=== PATIENT | male | born 1995 | race African-American/Black ===

== ENCOUNTER 2017-04-09 10:47 | Inpatient (IN) | payer OTHER ==
[2017-04-09 12:39] VITALS: BMI 30.5
--- NOTE | 2017-04-09 15:23 | HP ---
CIWA Score - CIWA Score Nausea/Vomitin (Nausea, vomiting & diarrhea) Muscle Tremors: 4-Moderate,w/Arms Extend Anxiety: 4-Mod. Anxious/Guarded Agitation: 4-Moderately Restless Paroxysmal Sweats: No Perspiration Orientation: 1-Uncertain about Date Tacttile Disturbances: 0-None Auditory Disturbances: 0-None Visual Disturbances: 1-Very Mild Sensitivity Headache: 4-Moderately Severe CIWA-Ar Total Score: 23 Admission [facility] - HPI Chief Complaint: Patient states "I am here to get help'' from alcohol and drugs addiction. Allergies/Adverse Reactions: Allergies Allergy/AdvReac Type Severity Reaction Status Date / Time Penicillins Allergy Verified 07/03/14 21:58 History of Present Illness: 21 y/o AA/male with h/o alcohol , opiods and cocaine dependence seeking detox tx. Patient was previously in treatment at [facility]. Exam Limitations: No Limitations - Ebola screening Have you traveled outside of the country in the last 21 days: No Have you had contact with anyone from an Ebola affected area: No Have you been sick,other than usual withdrawal symptoms: No Do you have a fever: No - Review of Systems Constitutional: Night Sweats, Changes in sleep EENT: reports: Dental Problems (cavities in the past and treated.) Respiratory: reports: No Symptoms reported Cardiac: reports: Lightheadedness, Syncope (when drunk) GI: reports: Diarrhea, Nausea, Vomiting : reports: No Symptoms Reported Musculoskeletal: reports: No Symptoms Reported Integumentary: reports: Sweating Neuro: reports: Headache, Tremors, Dizziness Endocrine: reports: Increased Thirst Hematology: reports: No Symptoms Reported Psychiatric: reports: Orientated x3, Anxious, Depressed Patient History - Patient Medical History Hx Anemia: No Hx Asthma: Yes (hx as a child. Last use of albuterol 7 yrs ago per patient.) Hx Chronic Obstructive Pulmonary Disease (COPD): No Hx Cardiac Disorders: No Hx Hypertension: No Hx Hypercholesterolemia: No HX Cerebrovascular Accident: No Hx Seizures: No Hx Diabetes: No Hx Gastrointestinal Disorders: No Hx Liver Disease: No Hx Genitourinary Disorders: No Hx Sexually Transmitted Disorders: No Hx Renal Disease (ESRD): No Hx Thyroid Disease: No Hx Human Immunodeficiency Virus (HIV): No (Negative hx) Hx Hepatitis C: No Hx Depression: Yes (Not on medication) Hx Suicide Attempt: Yes (Self cutting 12/2016;denies current S/H/I) Hx Bipolar Disorder: No Hx Schizophrenia: No - Patient Surgical History Past Surgical History: Yes Hx Neurologic Surgery: No Hx Cataract Extraction: No Hx Cardiac Surgery: No Hx Lung Surgery: No Hx Breast Surgery: No Hx Breast Biopsy: No Hx Abdominal Surgery: No Hx Appendectomy: Yes (2009) Hx Cholecystectomy: No Hx Genitourinary Surgery: No Hx Orthopedic Surgery: No Anesthesia Reaction: No - PPD History Previous Implant?: Yes (negative) Implanted On Prior [facility] Admission?: No PPD to be Administered?: Yes - Reproductive History Patient is a Female of Child Bearing Age (11 -55 yrs old): No (male) Patient : (n/a) - Smoking Cessation Smoking history: Current every day smoker Have you smoked in the past 12 months: Yes Aproximately how many cigarettes per day: 12 Hx Chewing Tobacco Use: No Initiated information on smoking cessation: Yes 'Breaking Loose' booklet given: 04/09/17 - Substance & Tx. History Hx Alcohol Use: Yes (beer/vodka) Hx Substance Use: Yes (percocet, cocaine, marjuana) Substance Use Type: Alcohol, Cocaine, Marijuana, Opiates Hx Substance Use Treatment: Yes (last treatment at [facility]) - Substances Abused Alcohol Route: Oral Frequency: Daily Amount used: a bottle of vodka and 6 pack of beer Age of first use: 12 Date of Last Use: 04/09/17 Cocaine Route: Inhalation Frequency: 3-6 times per week Amount used: $50 Age of first use: 21 Date of Last Use: 04/09/17 Family Disease History - Family Disease History Family Disease History: Diabetes: Grandparent (GM-), Mother Admission Physical Exam S - Vital Signs Vital Signs: Vital Signs - 24 hr 04/09/17 12:36 Temperature 98.1 F Pulse Rate 107 H Respiratory 20 Rate Blood Pressure 132/71 - Physical General Appearance: Yes: Appropriately Dressed, Alcohol on Breath HEENTM: Yes: Within Normal Limits, Hearing grossly Normal, Normocephalic, KYRA, Pharynx Normal Respiratory: Yes: Chest Non-Tender, Lungs Clear, Normal Breath Sounds, No Respiratory Distress Neck: Yes: No masses,lesions,Nodules, Supple, Trachea in good position Breast: Yes: Breast Exam Deferred Cardiology: Yes: Regular Rhythm, Regular Rate, S1, S2 Abdominal: Yes: Normal Bowel Sounds, Non Tender, Flat, Soft Genitourinary: Yes: Other (N/C) Back: Yes: Within Normal Limits, Normal Inspection Musculoskeletal: Yes: full range of Motion, Gait Steady Extremities: Yes: Normal Range of Motion, Non-Tender, Tremors Neurological: Yes: building engineer II-XII NML intact, Fully Oriented, Alert, Motor Strength 5/5 Integumentary: Yes: Dry, Warm, Other (Healed scars on left arm from self cutting. Tatoos; both forearms and right upper arm) Lymphatic: Yes: Within Normal Limits - Diagnostic (1) Alcohol dependence with uncomplicated withdrawal Current Visit: Yes Status: Acute (2) Cocaine dependence, uncomplicated Current Visit: Yes Status: Acute (3) Asthma Current Visit: Yes Status: Chronic Qualifiers: Asthma severity: mild intermittent Asthma complication type: uncomplicated Qualified Code(s): J45.20 - Mild intermittent asthma, uncomplicated Cleared for Admission [facility] - Detox or Rehab [facility] Level of Care: Medically Managed Detox Regimen/Protocol: Librium S Breath Alcohol Content Breath Alcohol Content: 0 Urine Drug Screen - Results Drug Screen Negative: No Urine Drug Screen Results: DEEPAK-Cocaine
[2017-04-09] MEDS ORDERED: hydrOXYzine PAMOATE 50 MG CAPSULE (FP) PO PRN (17:25)
[2017-04-09] MEDS ORDERED: MENTHOL/PHENOL 1 EACH UD MM PRN (17:25)
[2017-04-09] MEDS ORDERED: MAGNESIUM HYDROX 2400MG/30ML ORAL SUSPENSION 30 ML CUP PO PRN (17:25)
[2017-04-09] MEDS ORDERED: LOPERAMIDE HCL 2 MG CAPSULE PO PRN (17:25)
[2017-04-09] MEDS ORDERED: IBUPROFEN 400 MG TABLET (FP) PO PRN (17:25)
[2017-04-09] MEDS ORDERED: P-EPHED 60MG/TRIPROLIDI 2.5MG TABLET PO PRN (17:25)
[2017-04-09] MEDS ORDERED: ACETAMINOPHEN 325 MG TABLET (FP) PO PRN (17:25)
[2017-04-09] MEDS ORDERED: MAG HYDROX/AL HYDROX/SIMETH 30 ML UNIT-DOSE CUP PO PRN (17:25)
[2017-04-09] MEDS ORDERED: guaiFENesin/D-METHORPHAN HB 10 ML UNIT-DOSE CUPS PO PRN (17:25)
[2017-04-09] MEDS ORDERED: NICOTINE POLACRILEX 2 MG GUM BC PRN (17:25)
[2017-04-09] MEDS ORDERED: chlordiazePOXIDE HCL 25 MG CAPSULE PO PRN (17:25)
[2017-04-09] MEDS ORDERED: MAGNESIUM CITRATE 300 ML BOTTLE PO PRN (17:25)
[2017-04-09] MEDS: NICOTINE 21 MG/24 HOURS TOPICAL PATCH TD SCH (17:53)
[2017-04-09] MEDS ORDERED: chlordiazePOXIDE HCL 25 MG CAPSULE PO ONE (18:00)
[2017-04-09 21:25] LABS: URINE APPEARANCE CLEAR; URINE BILIRUBIN NEGATIVE (NEGATIVE); URINE BLOOD NEGATIVE (NEGATIVE); URINE COLOR LTYELLOW; URINE GLUCOSE (UA) NEGATIVE (NEGATIVE); URINE KETONE NEGATIVE (NEGATIVE); URINE LEUK ESTERASE NEGATIVE (NEGATIVE); URINE NITRITE NEGATIVE (NEGATIVE); URINE PROTEIN NEGATIVE (NEGATIVE); URINE UROBILINOGEN NEGATIVE mg/dL (0.2-1.0)
[2017-04-09] MEDS: diphenhydrAMINE HCL 50 MG CAPSULE PO PRN (22:15)
[2017-04-09] MEDS: chlordiazePOXIDE HCL 25 MG CAPSULE PO SCH (22:15)
[2017-04-09] MEDS: THIAMINE HCL 100 MG TABLET (FP) PO SCH (22:15)
[2017-04-10] MEDS: chlordiazePOXIDE HCL 25 MG CAPSULE PO SCH ×4 (07:02→22:01)
[2017-04-10 10:22] LABS: MCH 28.8 pg (25.7-33.7); MCHC 32.3 g/dl (32.0-35.9); MEAN CELL VOLUME 89.2 fl (80-96); MEAN PLT VOLUME 7.7 fl (7.5-11.1); PLATELET COUNT 253 K/MM3 (134-434); WHITE BLOOD COUNT 6.6 K/mm3 (4.0-10.0)
[2017-04-10] MEDS: PRENATAL VITAMINS W/ FOLIC ACID TABLET (FP) PO SCH (10:42)
[2017-04-10 10:47] LABS: ALBUMIN 3.3 g/dl (3.4-5.0); ALK PHOS 52 U/L (45-117); ANION GAP 6 (8-16); BILIRUBIN,TOTAL 0.3 mg/dL (0.2-1.0); CALCIUM 8.8 mg/dL (8.5-10.1); CO2 27 mmol/L (21-32); CREATININE 1.1 mg/dL (0.7-1.3); GLUCOSE,RANDOM 103 mg/dL (74-106); SGOT/AST 28 U/L (15-37); SGPT/ALT 54 U/L (12-78); TOT PROT 6.3 g/dl (6.4-8.2)
[2017-04-10] MEDS: NICOTINE 21 MG/24 HOURS TOPICAL PATCH TD SCH (11:12)
[2017-04-10] MEDS ORDERED: FLU VACCINE QUAD 60 MCG/0.5 ML (MDV 17-18) IM ONE (12:00)
--- NOTE | 2017-04-10 13:59 | CONSULT ---
[facility] Psychiatric Consult - Data Date of interview: 04/10/17 Admission source: [facility] Identifying data: This is 21 years old male with no psychiatric hospitalization history intoxicated with: Alcohol and Cocaine Substance Abuse History: - Smoking Cessation. Smoking history: Current every day smoker. Have you smoked in the past 12 months: Yes. Aproximately how many cigarettes per day: 12. Hx Chewing Tobacco Use: No. Initiated information on smoking cessation: Yes. 'Breaking Loose' booklet given: 04/09/17. - Substance & Tx. History. Hx Alcohol Use: Yes (beer/vodka). Hx Substance Use: Yes ( percocet, cocaine, marjuana). Substance Use Type: Alcohol, Cocaine, Marijuana, Opiates. Hx Substance Use Treatment: Yes (last treatment at [facility]). - Substances Abused. Alcohol. Route: Oral. Frequency: Daily. Amount used: a bottle of vodka and 6 pack of beer. Age of first use: 12. Date of Last Use: 04/09/17. Cocaine. Route: Inhalation. Frequency: 3-6 times per week. Amount used: $50. Age of first use: 21. Date of Last Use: 04/09/17 Medical History: Asthma, Cellulitis history, Psychiatric History: Denies Physical/Sexual Abuse/Trauma History: Denies Additional Comment: Observation. Detox Unit Care Protocol Psychiatric Findings - Problem List ([place] 1, 2,3) (1) Alcohol dependence with uncomplicated withdrawal Current Visit: Yes Status: Acute (2) Cocaine dependence, uncomplicated Current Visit: Yes Status: Acute (3) Drug-induced mood disorder Current Visit: Yes Status: Suspected - Initial Treatment Plan Initial Treatment Plan: Observation. Detox Unit Care Protocol
--- NOTE | 2017-04-10 16:01 | EKG ---
Test Reason : Blood Pressure : / mmHG Vent. Rate : 083 BPM Atrial Rate : 083 BPM P-R Int : 162 ms QRS Dur : 086 ms QT Int : 352 ms P-R-T Axes : 065 066 042 degrees QTc Int : 413 ms NORMAL SINUS RHYTHM NORMAL ECG NO PREVIOUS ECGS AVAILABLE Confirmed by VICKI MIGUEL, VETO ([id number]) on 04/10/2017 4:01:35 PM Referred By: Rhett Thompson Confirmed By:VETO COHEN MD
--- NOTE | 2017-04-10 16:02 | PN ---
[facility] CIWA - CIWA Score Nausea/Vomitin-No Nausea/No Vomiting Muscle Tremors: 3 Anxiety: 4-Mod. Anxious/Guarded Agitation: 3 Paroxysmal Sweats: 3 Orientation: 0-Oriented Tacttile Disturbances: 0-None Auditory Disturbances: 0-None Visual Disturbances: 0-None Headache: 0-None Present CIWA-Ar Total Score: 13 S Progress Note (SOAP) Subjective: Sweating,interrupted sleep,restless,tremors,anxiety Objective: 04/10/17 16:01 Vital Signs - 8 hr 04/10/17 04/10/17 09:48 13:13 Temperature 96.5 F L 98.6 F Pulse Rate 96 H 77 Respiratory 18 18 Rate Blood Pressure 121/76 118/72 Laboratory Last Values WBC 6.6 K/mm3 (4.0-10.0) 04/10/17 07:30 RBC 4.83 M/mm3 (4.00-5.60) 04/10/17 07:30 Hgb 13.9 GM/dL (11.7-16.9) 04/10/17 07:30 Hct 43.1 % (35.4-49) 04/10/17 07:30 MCV 89.2 fl (80-96) 04/10/17 07:30 MCH 28.8 pg (25.7-33.7) 04/10/17 07:30 MCHC 32.3 g/dl (32.0-35.9) 04/10/17 07:30 RDW 14.0 % (11.9-15.9) 04/10/17 07:30 Plt Count 253 K/MM3 (134-434) 04/10/17 07:30 MPV 7.7 fl (7.5-11.1) 04/10/17 07:30 Sodium 139 mmol/L (136-145) 04/10/17 07:30 Potassium 4.2 mmol/L (3.5-5.1) 04/10/17 07:30 Chloride 106 mmol/L (98-107) 04/10/17 07:30 Carbon Dioxide 27 mmol/L (21-32) 04/10/17 07:30 Anion Gap 6 (8-16) L 04/10/17 07:30 BUN 10 mg/dL (7-18) 04/10/17 07:30 Creatinine 1.1 mg/dL (0.7-1.3) 04/10/17 07:30 Creat Clearance w eGFR > 60 (>60) 04/10/17 07:30 Random Glucose 103 mg/dL (74-106) 04/10/17 07:30 Calcium 8.8 mg/dL (8.5-10.1) 04/10/17 07:30 Total Bilirubin 0.3 mg/dL (0.2-1.0) 04/10/17 07:30 AST 28 U/L (15-37) 04/10/17 07:30 ALT 54 U/L (12-78) 04/10/17 07:30 Alkaline Phosphatase 52 U/L (45-117) 04/10/17 07:30 Total Protein 6.3 g/dl (6.4-8.2) L 04/10/17 07:30 Albumin 3.3 g/dl (3.4-5.0) L 04/10/17 07:30 Urine Color Ltyellow 04/09/17 20:50 Urine Appearance Clear 04/09/17 20:50 Urine pH 7.0 (5.0-8.0) 04/09/17 20:50 Ur Specific [place] 1.020 (1.005-1.025) 04/09/17 20:50 Urine Protein Negative (NEGATIVE) 04/09/17 20:50 Urine Glucose (UA) Negative (NEGATIVE) 04/09/17 20:50 Urine Ketones Negative (NEGATIVE) 04/09/17 20:50 Urine Blood Negative (NEGATIVE) 04/09/17 20:50 Urine Nitrite Negative (NEGATIVE) 04/09/17 20:50 Urine Bilirubin Negative (NEGATIVE) 04/09/17 20:50 Urine Urobilinogen Negative mg/dL (0.2-1.0) 04/09/17 20:50 RPR Titer Nonreactive (NONREACTIVE) 04/10/17 07:30 labs noted Assessment: 04/10/17 16:01 Withdrawal sx. Plan: Continue detox
[2017-04-10] MEDS: THIAMINE HCL 100 MG TABLET (FP) PO SCH (22:01)
[2017-04-10] MEDS: diphenhydrAMINE HCL 50 MG CAPSULE PO PRN (22:01)
[2017-04-11] MEDS: chlordiazePOXIDE HCL 25 MG CAPSULE PO SCH ×3 (04:01→16:58)
[2017-04-11] MEDS: PRENATAL VITAMINS W/ FOLIC ACID TABLET (FP) PO SCH (10:46)
[2017-04-11] MEDS: NICOTINE 21 MG/24 HOURS TOPICAL PATCH TD SCH (10:46)
--- NOTE | 2017-04-11 12:36 | PN ---
[facility] CIWA - CIWA Score Nausea/Vomitin-No Nausea/No Vomiting Muscle Tremors: 4-Moderate,w/Arms Extend Anxiety: 4-Mod. Anxious/Guarded Agitation: 4-Moderately Restless Paroxysmal Sweats: 1-Minimal Palms Moist Orientation: 0-Oriented Tacttile Disturbances: 3-Moderate Itch/Numb/Burn Auditory Disturbances: 0-None Visual Disturbances: 0-None Headache: 0-None Present CIWA-Ar Total Score: 16 [facility] Progress Note (SOAP) Subjective: ANXIETY,SWEATS,TREMORS,FATIGUE. Objective: 04/11/17 12:46 Vital Signs Temperature 97.0 F L 04/11/17 10:32 Pulse Rate 96 H 04/11/17 10:32 Respiratory Rate 20 04/11/17 10:32 Blood Pressure 128/80 04/11/17 10:32 O2 Sat by Pulse Oximetry (%) Laboratory Last Values WBC 6.6 K/mm3 (4.0-10.0) 04/10/17 07:30 RBC 4.83 M/mm3 (4.00-5.60) 04/10/17 07:30 Hgb 13.9 GM/dL (11.7-16.9) 04/10/17 07:30 Hct 43.1 % (35.4-49) 04/10/17 07:30 MCV 89.2 fl (80-96) 04/10/17 07:30 MCH 28.8 pg (25.7-33.7) 04/10/17 07:30 MCHC 32.3 g/dl (32.0-35.9) 04/10/17 07:30 RDW 14.0 % (11.9-15.9) 04/10/17 07:30 Plt Count 253 K/MM3 (134-434) 04/10/17 07:30 MPV 7.7 fl (7.5-11.1) 04/10/17 07:30 Sodium 139 mmol/L (136-145) 04/10/17 07:30 Potassium 4.2 mmol/L (3.5-5.1) 04/10/17 07:30 Chloride 106 mmol/L (98-107) 04/10/17 07:30 Carbon Dioxide 27 mmol/L (21-32) 04/10/17 07:30 Anion Gap 6 (8-16) L 04/10/17 07:30 BUN 10 mg/dL (7-18) 04/10/17 07:30 Creatinine 1.1 mg/dL (0.7-1.3) 04/10/17 07:30 Creat Clearance w eGFR > 60 (>60) 04/10/17 07:30 Random Glucose 103 mg/dL (74-106) 04/10/17 07:30 Calcium 8.8 mg/dL (8.5-10.1) 04/10/17 07:30 Total Bilirubin 0.3 mg/dL (0.2-1.0) 04/10/17 07:30 AST 28 U/L (15-37) 04/10/17 07:30 ALT 54 U/L (12-78) 04/10/17 07:30 Alkaline Phosphatase 52 U/L (45-117) 04/10/17 07:30 Total Protein 6.3 g/dl (6.4-8.2) L 04/10/17 07:30 Albumin 3.3 g/dl (3.4-5.0) L 04/10/17 07:30 Urine Color Ltyellow 04/09/17 20:50 Urine Appearance Clear 04/09/17 20:50 Urine pH 7.0 (5.0-8.0) 04/09/17 20:50 Ur Specific [place] 1.020 (1.005-1.025) 04/09/17 20:50 Urine Protein Negative (NEGATIVE) 04/09/17 20:50 Urine Glucose (UA) Negative (NEGATIVE) 04/09/17 20:50 Urine Ketones Negative (NEGATIVE) 04/09/17 20:50 Urine Blood Negative (NEGATIVE) 04/09/17 20:50 Urine Nitrite Negative (NEGATIVE) 04/09/17 20:50 Urine Bilirubin Negative (NEGATIVE) 04/09/17 20:50 Urine Urobilinogen Negative mg/dL (0.2-1.0) 04/09/17 20:50 RPR Titer Nonreactive (NONREACTIVE) 04/10/17 07:30 Assessment: 04/11/17 12:46 WITHDRAWAL SX Plan: CONTINUE DETOX
--- NOTE | 2017-04-11 12:45 | PN ---
[facility] Progress Note (SOAP) Subjective: ANXIETY,TREMORS,FATIGUE. Objective: 04/11/17 12:45 Vital Signs Temperature 97.0 F L 04/11/17 10:32 Pulse Rate 96 H 04/11/17 10:32 Respiratory Rate 20 04/11/17 10:32 Blood Pressure 128/80 04/11/17 10:32 O2 Sat by Pulse Oximetry (%) Laboratory Last Values WBC 6.6 K/mm3 (4.0-10.0) 04/10/17 07:30 RBC 4.83 M/mm3 (4.00-5.60) 04/10/17 07:30 Hgb 13.9 GM/dL (11.7-16.9) 04/10/17 07:30 Hct 43.1 % (35.4-49) 04/10/17 07:30 MCV 89.2 fl (80-96) 04/10/17 07:30 MCH 28.8 pg (25.7-33.7) 04/10/17 07:30 MCHC 32.3 g/dl (32.0-35.9) 04/10/17 07:30 RDW 14.0 % (11.9-15.9) 04/10/17 07:30 Plt Count 253 K/MM3 (134-434) 04/10/17 07:30 MPV 7.7 fl (7.5-11.1) 04/10/17 07:30 Sodium 139 mmol/L (136-145) 04/10/17 07:30 Potassium 4.2 mmol/L (3.5-5.1) 04/10/17 07:30 Chloride 106 mmol/L (98-107) 04/10/17 07:30 Carbon Dioxide 27 mmol/L (21-32) 04/10/17 07:30 Anion Gap 6 (8-16) L 04/10/17 07:30 BUN 10 mg/dL (7-18) 04/10/17 07:30 Creatinine 1.1 mg/dL (0.7-1.3) 04/10/17 07:30 Creat Clearance w eGFR > 60 (>60) 04/10/17 07:30 Random Glucose 103 mg/dL (74-106) 04/10/17 07:30 Calcium 8.8 mg/dL (8.5-10.1) 04/10/17 07:30 Total Bilirubin 0.3 mg/dL (0.2-1.0) 04/10/17 07:30 AST 28 U/L (15-37) 04/10/17 07:30 ALT 54 U/L (12-78) 04/10/17 07:30 Alkaline Phosphatase 52 U/L (45-117) 04/10/17 07:30 Total Protein 6.3 g/dl (6.4-8.2) L 04/10/17 07:30 Albumin 3.3 g/dl (3.4-5.0) L 04/10/17 07:30 Urine Color Ltyellow 04/09/17 20:50 Urine Appearance Clear 04/09/17 20:50 Urine pH 7.0 (5.0-8.0) 04/09/17 20:50 Ur Specific [place] 1.020 (1.005-1.025) 04/09/17 20:50 Urine Protein Negative (NEGATIVE) 04/09/17 20:50 Urine Glucose (UA) Negative (NEGATIVE) 04/09/17 20:50 Urine Ketones Negative (NEGATIVE) 04/09/17 20:50 Urine Blood Negative (NEGATIVE) 04/09/17 20:50 Urine Nitrite Negative (NEGATIVE) 04/09/17 20:50 Urine Bilirubin Negative (NEGATIVE) 04/09/17 20:50 Urine Urobilinogen Negative mg/dL (0.2-1.0) 04/09/17 20:50 RPR Titer Nonreactive (NONREACTIVE) 04/10/17 07:30 Assessment: 04/11/17 12:45 WITHDRAWAL SX Plan: CONTINUE DETOX
[2017-04-11] MEDS: THIAMINE HCL 100 MG TABLET (FP) PO SCH (22:16)
[2017-04-11] MEDS: chlordiazePOXIDE 5 MG CAPSULE PO SCH (22:16)
[2017-04-11] MEDS: diphenhydrAMINE HCL 50 MG CAPSULE PO PRN (22:17)
[2017-04-12] MEDS: chlordiazePOXIDE 5 MG CAPSULE PO SCH (06:11)
[2017-04-12 06:44] VITALS: BP 116/64; PULSE 75; TEMP 96.7
--- NOTE | 2017-04-12 17:48 | DS ---
[facility] Detox Discharge Summary Admission Date: 04/09/17 Discharge Date: 04/12/17 - History Present History: Alcohol Dependence, Cocaine Dependence Additional Comments: PATIENT DENYING ANY CURRENT DETOX SYMPTOMS AND REPORTING THAT HE FEELS WELL OVERALL. PATIENT GOING HOME AND TO [facility] ( [facility] FOR AFTERCARE. PATIENT WAS DISCHARGED FROM DETOX UNIT IN STABLE MEDICAL CONDITION. Pertinent Past History: History of Asthma, Depression. - Physical Exam Results Vital Signs: Vital Signs Temperature 96.7 F L 04/12/17 06:43 Pulse Rate 75 04/12/17 06:43 Respiratory Rate 18 04/12/17 06:43 Blood Pressure 116/64 04/12/17 06:43 O2 Sat by Pulse Oximetry (%) Pertinent Admission Physical Exam Findings: WITHDRAWAL SYMPTOMS. Laboratory Tests 04/09/17 04/10/17 04/10/17 20:50 07:30 07:30 WBC 6.6 RBC 4.83 Hgb 13.9 Hct 43.1 MCV 89.2 MCH 28.8 MCHC 32.3 RDW 14.0 Plt Count 253 MPV 7.7 Sodium 139 Potassium 4.2 Chloride 106 Carbon Dioxide 27 Anion Gap 6 L BUN 10 Creatinine 1.1 Creat Clearance w eGFR > 60 Random Glucose 103 Calcium 8.8 Total Bilirubin 0.3 AST 28 ALT 54 Alkaline Phosphatase 52 Total Protein 6.3 L Albumin 3.3 L Urine Color Ltyellow Urine Appearance Clear Urine pH 7.0 Ur Specific [place] 1.020 Urine Protein Negative Urine Glucose (UA) Negative Urine Ketones Negative Urine Blood Negative Urine Nitrite Negative Urine Bilirubin Negative Urine Urobilinogen Negative RPR Titer 04/10/17 07:30 WBC RBC Hgb Hct MCV MCH MCHC RDW Plt Count MPV Sodium Potassium Chloride Carbon Dioxide Anion Gap BUN Creatinine Creat Clearance w eGFR Random Glucose Calcium Total Bilirubin AST ALT Alkaline Phosphatase Total Protein Albumin Urine Color Urine Appearance Urine pH Ur Specific [place] Urine Protein Urine Glucose (UA) Urine Ketones Urine Blood Urine Nitrite Urine Bilirubin Urine Urobilinogen RPR Titer Nonreactive LABS NOTED. - Treatment Hospital Course: Detox Protocol Followed, Detoxed Safely, Responded well, Discharged Condition Good Patient has Accepted a Rehab Referral to: NO .PT. GOING TO [facility] - Medication Discharge Medications: Ambulatory Orders NK [No Known Home Medication] 04/09/17 - Diagnosis (1) Alcohol dependence with uncomplicated withdrawal Status: Acute (2) Cocaine dependence, uncomplicated Status: Acute (3) Asthma Status: Chronic Qualifiers: Asthma severity: mild intermittent Asthma complication type: uncomplicated Qualified Code(s): J45.20 - Mild intermittent asthma, uncomplicated (4) Drug-induced mood disorder Status: Suspected - AMA Did Patient Leave Against Medical Advice: No
[2017-04-12] MEDS ORDERED: chlordiazePOXIDE HCL 10 MG CAPSULE PO SCH (23:00)
== END 2017-04-12 09:25 | disposition home or self-care (01) | DRG 774 ==
LOC: YASAS 10:47 → Y3N 17:13
PROVIDERS: ADMIT Internal Medicine; ATTEND Internal Medicine
PROC: HZ2ZZZZ Detoxification Services for Substance Abuse Treatment (ICD-10-PCS; principal; 2017-04-09)
DX: F10.230 Alcohol dependence with withdrawal, uncomplicated (principal); F14.20 Cocaine dependence, uncomplicated; F19.24 Other psychoactive substance dependence with psychoactive substance-induced mood disorder; F32.9 Major depressive disorder, single episode, unspecified; J45.20 Mild intermittent asthma, uncomplicated; F17.210 Nicotine dependence, cigarettes, uncomplicated; Z91.5 Personal history of self-harm
CPT/HCPCS: 36415; 80053; 81003; 85027; 86593; 93005; 93010

== ENCOUNTER 2021-11-19 09:25 | Emergency (ER) | payer OTHER ==
[2021-11-19] MEDS ORDERED: SODIUM CHLORIDE 0.9% 500 ML INFUS.BAG IV ONE (09:55)
[2021-11-19] MEDS ORDERED: ACETAMINOPHEN 1000 MG/100 ML BAG IVPB ONE (09:55)
[2021-11-19 10:45] VITALS: BMI 36.6
[2021-11-19] MEDS ORDERED: ACETAMINOPHEN INJECTION 100 ML IVPB ONE (11:05)
[2021-11-19 11:06] LABS: INR 1.76 (0.83-1.09); PROTHROMBIN TIME (PATIENT) 20.3 SEC (9.7-13.0)
[2021-11-19 11:07] LABS: HEMATOCRIT 27.9 % (35.4-49); HEMOGLOBIN 9.1 G/dL (11.7-16.9); MCH 25.8 pg (25.7-33.7); MCHC 32.4 g/dl (32.0-35.9); MEAN CELL VOLUME 79.4 fl (80-96); MEAN PLT VOLUME 7.2 fl (7.5-11.1); PLATELET COUNT 915.6 10^3/uL (134-434); RBC 3.51 10^6/uL (4.00-5.60); RDW 18.2 % (11.9-15.9); WHITE BLOOD COUNT 21.4 10^3/uL (4.0-10.8)
[2021-11-19 11:09] LABS: ACTIVATED PTT 31.8 SECONDS (25.2-36.5)
[2021-11-19 11:13] LABS: ALBUMIN 2.3 g/dl (3.4-5.0); BILIRUBIN,TOTAL 0.7 mg/dl (0.2-1); CALCIUM 8.7 mg/dl (8.5-10); CREATININE 1.3 mg/dl (0.55-1.3); TOT PROT 7.2 g/dl (6.4-8.2)
[2021-11-19] MEDS ORDERED: IMIPENEM/CILASTATIN SODIUM 1,000 MG in SODIUM CHLORIDE 100 ML IVPB ONE (11:44)
[2021-11-19 14:15] LABS: LACTIC ACID 3.3 mmol/L (0.4-2.0)
[2021-11-19 14:36] LABS: URINE APPEARANCE CLEAR; URINE BILIRUBIN NEGATIVE (NEGATIVE); URINE COLOR YELLOW; URINE GLUCOSE (UA) NEGATIVE (NEGATIVE); URINE KETONE NEGATIVE (NEGATIVE)
[2021-11-19 14:37] LABS: URINE LEUK ESTERASE NEGATIVE (NEGATIVE); URINE NITRITE NEGATIVE (NEGATIVE); URINE PROTEIN 1+ (NEGATIVE); URINE RBC 0-2 /hpf (0-4); URINE UROBILINOGEN 0.2 (0.2-1.0); URINE WBC 0-2 (NEGATIVE)
[2021-11-19] MEDS ORDERED: morphine CARPU-JECT 2 MG/1 ML DISP.SYRIN IVPUSH ONE (15:36)
[2021-11-19] MEDS ORDERED: morphine SULFATE 4 MG/ML VIAL ONE (15:42)
[2021-11-19 15:55] LABS: ANISOCYTOSIS 2+; PLATELET ESTIMATE SIGNIFICANT INCREASE
[2021-11-19 19:22] VITALS: BP 107/46; PULSE 99; TEMP 99.1
== END 2021-11-19 20:40 | disposition short-term general hospital (02) ==
LOC: FER 09:25
PROC: 3E0333Z Introduction of Anti-inflammatory into Peripheral Vein, Percutaneous Approach (ICD-10-PCS; principal; 2021-11-19)
PROC: 3E03329 Introduction of Other Anti-infective into Peripheral Vein, Percutaneous Approach (ICD-10-PCS; 2021-11-19)
PROC: 3E033NZ Introduction of Analgesics, Hypnotics, Sedatives into Peripheral Vein, Percutaneous Approach (ICD-10-PCS; 2021-11-19)
DX: L03.317 Cellulitis of buttock (principal)
CPT/HCPCS: 36415; 71045-TC-FY; 74177-TC; 80053; 81003; 82553; 83605; 85025; 85610; 85730; 86850; 86900; 86901; 87040; 87086; 87491; 87591; 93005; 99284-25; C9803-CS; Q9967; U0003; U0005

== ENCOUNTER 2022-05-04 18:59 | Emergency (ER) | payer OTHER ==
[2022-05-04 19:17] VITALS: BP 125/84; RESP 18; TEMP 98.3; BMI 29.1
[2022-05-04 19:40] VITALS: PULSE 107
[2022-05-04 22:29] LABS: HIV INTERPRETATION NEGATIVE (NEGATIVE)
== END 2022-05-04 19:43 | disposition home or self-care (01) ==
LOC: FER 18:59
DX: Z20.6 Contact with and (suspected) exposure to human immunodeficiency virus [HIV] (principal)
CPT/HCPCS: 36415; 87389; 99283-25

== ENCOUNTER 2022-12-19 21:24 | Emergency (ER) | payer OTHER ==
[2022-12-19 21:51] VITALS: BP 122/79; PULSE 96; RESP 18; TEMP 99.3; BMI 26.4
[2022-12-19] MEDS ORDERED: KETOROLAC TROMETHAMINE 30 MG/1 ML VIAL IVPUSH ONE (22:03)
[2022-12-19] MEDS ORDERED: SODIUM CHLORIDE 1,000 ML IV ONE (22:03)
[2022-12-19] MEDS ORDERED: METOCLOPRAMIDE HCL INJECTION 10 MG/2 ML VIAL IVPUSH ONE (22:03)
[2022-12-19] MEDS ORDERED: KETOROLAC TROMETHAMINE 30 MG/1 ML VIAL ONE (22:05)
[2022-12-19] MEDS ORDERED: METOCLOPRAMIDE HCL INJECTION 10 MG/2 ML VIAL ONE (22:05)
[2022-12-19 22:36] LABS: HEMATOCRIT 42.3 % (35.4-49); HEMOGLOBIN 13.8 G/dL (11.7-16.9); MCH 28.4 pg (25.7-33.7); MCHC 32.5 g/dl (32.0-35.9); MEAN CELL VOLUME 87.3 fl (80-96); MEAN PLT VOLUME 7.7 fl (7.5-11.1); PLATELET COUNT 325.9 10^3/uL (134-434); RBC 4.84 10^6/uL (4.00-5.60); WHITE BLOOD COUNT 8.5 10^3/uL (4.0-10.8)
[2022-12-19] MEDS ORDERED: LOPERAMIDE HCL 2 MG CAPSULE PO ONE (22:43)
[2022-12-19 22:48] LABS: ALBUMIN 3.8 g/dl (3.4-5.0); BILIRUBIN,TOTAL 0.2 mg/dl (0.2-1); CREATININE 0.9 mg/dl (0.55-1.3); POTASSIUM 3.7 mmol/L (3.5-5.1); TOT PROT 6.9 g/dl (6.4-8.2)
[2022-12-19] MEDS ORDERED: LOPERAMIDE HCL 2 MG CAPSULE ONE (22:51)
== END 2022-12-19 23:05 | disposition home or self-care (01) ==
LOC: FER 21:24
PROC: 3E033GC Introduction of Other Therapeutic Substance into Peripheral Vein, Percutaneous Approach (ICD-10-PCS; principal; 2022-12-19)
PROC: 3E033GC Introduction of Other Therapeutic Substance into Peripheral Vein, Percutaneous Approach (ICD-10-PCS; 2022-12-19)
PROC: 3E0337Z Introduction of Electrolytic and Water Balance Substance into Peripheral Vein, Percutaneous Approach (ICD-10-PCS; 2022-12-19)
DX: R11.2 Nausea with vomiting, unspecified (principal); R19.7 Diarrhea, unspecified; R51.9 Headache, unspecified
CPT/HCPCS: 36415; 80053; 85027; 99284-25